=== PATIENT | female | born 1995 | race Caucasian/White ===

== ENCOUNTER → 2020-11-07 01:04 | Outpatient (CLI) | payer OTHER, SELFPAY ==
[2020-11-07 18:48] LABS: SARS-CoV-2 RNA PCR Negative
== END ==
PROVIDERS: Visit Provider Dentist
DX: Z01.812 Encounter for preprocedural laboratory examination (principal); Z20.822 Contact with and (suspected) exposure to COVID-19
CPT/HCPCS: C9803; U0003; U0005

== ENCOUNTER 2020-11-10 01:45 | Day surgery (SDC) | payer OTHER, SELFPAY ==
--- NOTE | 2020-11-09 12:45 | WPDANESEPPF ---
Anes - Initial Pre Proc Eval Procedure: Operation Date: 11/10/20 08:30 Proposed Procedures p Extraction of Four Impacted [place] Teeth - Rosales Baum DMD Date/Time: 11/09/20 12:45 Surgeon: Rosales Baum DMD Pre Op Diagnosis: impacted wisdom teeth Patient Data Age: 25 Gender: F Height: 1.74 m Weight: Allergies Allergy/AdvReac Type Severity Reaction Status Date / Time No Known Allergies Allergy Mild Verified 11/01/20 15:28 Home Medications Medication Instructions Recorded Confirmed Type amitriptyline 25 mg PO HS 11/01/20 11/01/20 History bupropion HCl 300 mg PO DAILY 11/01/20 11/01/20 History cholecalciferol (vitamin D3) 25 mcg PO DAILY 11/01/20 11/01/20 History [Vitamin D3] etonogestrel [Nexplanon] 1 implant SUBDERMAL ONCE 11/01/20 11/01/20 History lamotrigine 200 mg PO DAILY 11/01/20 11/01/20 History loratadine [Claritin] 10 mg PO DAILY 11/01/20 11/01/20 History cf-lf-ferd-FA-Ca carb-vit K 1 tablet PO DAILY 11/01/20 11/01/20 History [Women's Multivitamin] omeprazole 20 mg PO DAILY 11/01/20 11/01/20 History sumatriptan succinate 50 mg PO ONCE PRN 11/01/20 11/01/20 History venlafaxine [Effexor] 75 mg PO DAILY 11/01/20 11/01/20 History Patient hx anesthesia problems: none Family hx anesthesia problems: none FOR[facility]LY [facility] Past Medical History Medical History (Updated 11/10/20 @ 07:16 by Christopher Cortez MD) Anxiety Depression Morbid obesity with BMI of 40.0-44.9, adult GLEN on CPAP Social History Social History Smoking status: Never smoker Alcohol intake: current Alcohol use details: 1-2/MONTH Substance use: never Substance use type: does not use Living arrangements: with family Spiritual care concerns: No Anes - Eval Final PreProcedure Day of Procedure 11/09/20 12:45 Patient weight: overweight Heart: regular rate and rhythm Lungs: clear to auscultation and normal air movement Airway: Mallampati scale class II Neurological: alert and oriented Last oral intake: >/= 8 hours ASA classification: III Emergent: no Anesthetic plan: proceed Anesthesia type and monitoring: general ETT Informed Consent: The patient's anesthetic plan and its attendant risks and benefits were discussed with the patient/family/POA. Questions were solicited and answers provided to the satisfaction of the patient/family/POA.
[2020-11-10 06:54] VITALS: BP 123/75; PULSE 91; RESP 18; TEMP 36.1; O2SAT 99
[2020-11-10] MEDS: LACTATED RINGERS 1,000 ML 30 ML IV CONT ×2 (07:02→09:08)
--- NOTE | 2020-11-10 07:26 | WPDHPUPDATE1 ---
History and Physical Update Update Date/Time: 11/10/20 07:26 History and Physical has been reviewed, including an updated exam of the patient. There are NO changes in the patient's condition. Risks, benefits, and alternatives have been discussed and questions answered. Patient agrees to proceed with procedure.
--- NOTE | 2020-11-10 07:26 | PM.IMHP ---
H&P: HPI History of Present Illness Date/Time: 11/10/20 07:26 complains of crowding Chief Complaint: crowding of teeth PMFSH Past Medical History Medical History (Updated 11/10/20 @ 07:27 by Rosales Baum DMD) Anxiety Depression Morbid obesity with BMI of 40.0-44.9, adult GLEN on CPAP Social History Social History Smoking status: Never smoker Alcohol intake: current Alcohol use details: 1-2/MONTH Substance use: never Substance use type: does not use Living arrangements: with family Spiritual care concerns: No Meds Home Medications and Allergies Home Medications Medication Instructions Recorded Confirmed Type amitriptyline 25 mg PO HS 11/01/20 11/01/20 History bupropion HCl 300 mg PO DAILY 11/01/20 11/01/20 History cholecalciferol (vitamin D3) 25 mcg PO DAILY 11/01/20 11/01/20 History [Vitamin D3] etonogestrel [Nexplanon] 1 implant SUBDERMAL ONCE 11/01/20 11/01/20 History lamotrigine 200 mg PO DAILY 11/01/20 11/01/20 History loratadine [Claritin] 10 mg PO DAILY 11/01/20 11/01/20 History bo-fv-stjm-FA-Ca carb-vit K 1 tablet PO DAILY 11/01/20 11/01/20 History [Women's Multivitamin] omeprazole 20 mg PO DAILY 11/01/20 11/01/20 History sumatriptan succinate 50 mg PO ONCE PRN 11/01/20 11/01/20 History venlafaxine [Effexor] 75 mg PO DAILY 11/01/20 11/01/20 History Allergies Allergy/AdvReac Type Severity Reaction Status Date / Time No Known Allergies Allergy Mild Verified 11/01/20 15:28 Vital Signs Vital Signs - 24 hr 11/10/20 06:54 Temperature 36.1 C L Pulse Rate 91 Respiratory Rate 18 Blood Pressure 123/75 Pulse Oximetry 99 Assessment and Plan Assessment and plan (1) Non-restorable tooth: Code(s): K08.89 - Other specified disorders of teeth and supporting structures Status: Acute Assessment and Plan: removal 1,16,17,32
[2020-11-10] MEDS: LIDOCAINE 2%-EPI (FOR DENTAL BLOCK) 1.7 ML CARTRIDGE 7 ML INFILTRATE (08:41)
--- NOTE | 2020-11-10 09:07 | PM.PROC ---
Procedure Note - Detailed Date of procedure: 11/10/20 Pre-op diagnosis: impacted wisdom teeth Surgeon: Rosales Baum DMD Patient in countered in the operating room under the care of the Anesthesia Service to induce general anesthetic. Oral cavity was suctioned free of debris and throat pack placed. Local anesthetic administered. A 15 blade used to make a 3rd molar incision area of tooth 1. And a full-thickness flaps elevated to the buccal. Bone was removed using the drill and the tooth was removed using elevator and forceps technique without complication. Socket curetted free of debris and irrigated copious amounts of sterile saline. Gingiva tissues reapproximated using 4 0 chromic gut suture in interrupted fashion. Attention was turned to the area 16. Which was extracted in an identical fashion. Attention was turned to the area of 17. Or 3rd molar incision was made and a full-thickness flap was elevated to the buccal. A buccal trough was created in the tooth was sectioned and removed using elevator forceps technique without complication. Socket curetted free of debris and irrigated with copious amounts of sterile saline. Gingival tissues reapproximated using Manny chromic gut suture in interrupted fashion. Tooth number 32 was extracted in identical fashion. Oral cavity was suctioned free of debris and throat pack was removed. Care of the patient was returned to the Anesthesia Service to extubate the patient transferred to recovery in stable condition. Estimated blood loss 10cc local anesthetic given was 7cc of 2% lidocaine with 100,000 epinephrine. Complications none. Preoperative diagnosis impacted teeth #1,16,17,32. Postop diagnosis same.
[2020-11-10 09:10] VITALS: BP 112/60; PULSE 90; RESP 15; TEMP 36; O2SAT 98
[2020-11-10 09:25] VITALS: BP 115/70; PULSE 106; RESP 20; O2SAT 98
[2020-11-10 09:40] VITALS: BP 95/83; PULSE 93; RESP 10; O2SAT 98
[2020-11-10 09:45] VITALS: BP 132/88; PULSE 90; RESP 16
[2020-11-10 10:15] VITALS: BP 126/86; PULSE 90; RESP 16
== END 2020-11-10 10:24 | disposition home or self-care (01) ==
PROVIDERS: Visit Provider Dentist
PROC: (CPT 41899; principal; 2020-11-10 08:30)
DX: K01.1 Impacted teeth (principal); F41.8 Other specified anxiety disorders; G47.33 Obstructive sleep apnea (adult) (pediatric); E66.01 Morbid (severe) obesity due to excess calories; Z68.41 Body mass index [BMI] 40.0-44.9, adult
CPT/HCPCS: 41899 ×4; J0330; J1100; J2250; J2405; J2704; J3010; J7120